=== PATIENT | male | born 1965 | race Caucasian/White ===

== ENCOUNTER 2019-06-30 12:45 | Outpatient (CLI) | payer OTHER ==
--- NOTE | 2019-06-30 14:52 | ULT ---
CAROTID ARTERIAL DOPPLER ULTRASOUND: DATE: 06/30/19 COMPARISON: None. HISTORY: Hypertensive retinopathy. TECHNIQUE: Multiplanar Dutton scale sonographic imaging of the arterial structures of the neck bilaterally obtaine d with color flow and spectral analysis. FINDINGS: Antegrade blood flow in normal arterial waveforms are documented within the carotid and the vertebral system bilaterally. VESSEL PSV (CM/SEC) EDV (CM/SEC) Right CCA 118 38 Right ICA 129 41 Right ECA 134 37 Left CCA 107 35 Left ICA 79 35 Left ECA 99 29 ICA/CCA ratio is 1.1 on the right and 0.7 on the left. IMPRESSION: Mildly elevated velocity within the internal carotid artery on the right correlates with a moderate d egree of stenosis (50-69% at peak systolic velocities of 125-230 cm/second). POS: ROBBIE
== END 2019-06-30 12:46 | disposition home or self-care (01) ==
LOC: ULT 12:45
PROVIDERS: ATTEND Family Medicine
DX: H35.039 Hypertensive retinopathy, unspecified eye (principal)
CPT/HCPCS: 93880

== ENCOUNTER 2020-08-31 13:20 | Outpatient (CLI) | payer OTHER ==
--- NOTE | 2020-08-31 14:50 | MRI ---
MR the lumbar spine without contrast: 08/31/2020 History: Spinal stenosis, chronic low back pain COMPARISON: None. TECHNIQUE: Multiplanar multisequence MR images were obtained of lumbar spine without IV contrast FINDINGS: On the basis of 5 lumbar type vertebral bodies, conus medullaris terminates at theL1 level. Sagittal STIR imaging demonstrates no focal area of osseous marrow edema. T12-L1:Intervertebral disc height and signal intensity within normal limits with no significant centr al canal or neural foraminal stenosis. L1-2:Mild bilateral facet hypertrophy. Disc desiccation. Mild anterior osteophyte formation. No signi ficant central canal or neural foraminal stenosis. L2-3:Intervertebral disc height and signal intensity within normal limits. No significant central can al or neural foraminal stenosis. L3-4:Mild bilateral facet hypertrophy. Mild disc space narrowing. Disc desiccation. No significant ce ntral canal or neural foraminal stenosis. L4-5:Bilateral facet hypertrophy and hypertrophy of the ligamentum flavum. Fluid within bilateral fac et joints noted, left greater than right, which can be seen in the setting of instability. Flexion and extension radiographs may be beneficial. Anterolisthesis at L4-5 noted, measuring approximately 5 mm. Mild central canal stenosis. No significant neural foraminal stenosis. L5-S1:There is a small central disc herniation with an associated annular tear. This causes no signif icant central canal stenosis. Mild facet hypertrophy noted bilaterally with no significant neural foraminal stenosis. Image retroperitoneal structures demonstrates a questionable 1.4 cm T2 hypointense lesion within the medial aspect of the midpole right kidney.. IMPRESSION: Multilevel lumbar spine degenerative change as detailed above. Findings suggesting a 1.4 cm T2 hypointense lesion within the medial aspect of the midpole right uziel palencia. Recommend follow-up CT of the abdomen with and without contrast using renal mass protocol. CODE T
--- NOTE | 2020-08-31 14:54 | ULT ---
BILATERAL CAROTID DOPPLER ULTRASOUND: 08/31/20 HISTORY: Carotid stenosis. TECHNIQUE: Dutton scale ultrasound with color flow and spectral Doppler imaging of the extracranial carotid artery systems is performed bilaterally. FINDINGS: No plaque formation or significant intimal wall thickening seen on either side. The peak systolic velocity in the right ICA measures 106 cm/s with an end diastolic velocity of 21 cm /s and systolic ratio of 0.76. The peak systolic velocity in the left ICA measures 192 cm/s with an end diastolic velocity of 32 cm/ s and systolic ratio of 0.69. Flow in both vertebral arteries remains antegrade. IMPRESSION: No evidence of hemodynamically significant stenosis in either ICA. POS: AH
== END 2020-08-31 13:21 | disposition home or self-care (01) ==
LOC: BICULT 13:20
PROVIDERS: ATTEND Family Medicine
DX: M51.36 Other intervertebral disc degeneration, lumbar region (principal); M48.061 Spinal stenosis, lumbar region without neurogenic claudication; I65.29 Occlusion and stenosis of unspecified carotid artery
CPT/HCPCS: 72148; 93880

== ENCOUNTER 2022-06-30 13:49 | Outpatient (CLI) | payer BC | END 2022-06-30 13:50 | disposition home or self-care (01) | LOC: BICCT 13:49 → CT 13:50 | PROVIDERS: ATTEND Family Medicine | DX: Z12.2 Encounter for screening for malignant neoplasm of respiratory organs (principal); F17.210 Nicotine dependence, cigarettes, uncomplicated | CPT/HCPCS: 71271 ==

== ENCOUNTER 2024-08-05 13:18 | Outpatient (CLI) | payer BC | END 2024-08-05 13:19 | disposition home or self-care (01) | LOC: BICCT 13:18 | PROVIDERS: ATTEND Internal Medicine Critical Care Medicine | DX: R91.8 Other nonspecific abnormal finding of lung field (principal) | CPT/HCPCS: 71250 ==

== ENCOUNTER 2025-06-30 14:30 | Outpatient (CLI) | payer BC | END 2025-06-30 14:31 | disposition home or self-care (01) | LOC: BICRAD 14:30 | PROVIDERS: ATTEND Family Medicine | DX: J44.9 Chronic obstructive pulmonary disease, unspecified (principal) | CPT/HCPCS: 71046 ==